=== PATIENT | female | born 1980 | race Caucasian/White ===

== ENCOUNTER 2022-02-24 06:09 | Emergency (ER) | payer OTHER ==
[~2022-02-24] VITALS: Ht 170.2 cm; Wt 97.5 kg
[2022-02-24] MEDS ORDERED: SODIUM BICARBONATE SYR 50 MEQ/50 ML DISP.SYRIN IV ONE (06:12)
[2022-02-24] MEDS ORDERED: EPINEPHRINE (1:10,000) SYRINGE 1 MG/10 ML DISP.SYRIN IVP ONE (06:12)
[2022-02-24] MEDS ORDERED: CALCIUM CHLORIDE 1,000 MG/10 ML DISP.SYRIN IV ONE (06:12)
--- NOTE | 2022-02-24 06:12 | NUR ---
Kai hernadez in [facility] - 02/24/22 at 0659 by VICTORINA PT TRUPTI VOSS CASE: REJECT NUMBER [id number] SPOKE TO SEVEN
--- NOTE | 2022-02-24 06:24 | NUR ---
PT EXTUBATED WITH LARGE MUCAL PLUG. PT INTUBATED BY DR. MARY GOTTI WITH RT.
--- NOTE | 2022-02-24 06:34 | NUR ---
TIME OF PRONOUNCED AT [address] MARY GOTTI.
--- NOTE | 2022-02-24 06:53 | NUR ---
PT WAS BROUGHT BY LILIA @ 0612, PT IS IN FULL ARREST, NO PULSE APPRECIATED. 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 LILIA REPORTED THAT PT STARTED TO CODE UPON PULLING IN THE HOSPITAL DRIVEWAY. CODE BLUE WAS INITIATED, MD WAS AT THE BEDSIDE. UPON PRESENTATION, PT IS UNRESPONSIVE.
--- NOTE | 2022-02-24 06:59 | NUR ---
PT NOT CORONERS CASE: REJECT NUMBER [id number] SPOKE TO SEVEN
--- NOTE | 2022-02-24 07:03 | NUR ---
DR STERLING PMD NOTIFIED THAT PT
--- NOTE | 2022-02-24 07:05 | NUR ---
CALLED [facility], SPOKE WITH PAUL RAHMAN TO INFORM THAT THE PATIENT HAVE . SHE WILL BE NOTIFYING THE FAMILY OF PT'S .
--- NOTE | 2022-02-24 07:15 | NUR ---
CALLED [facility] AND SPOKE TO BENOIT JHAVERI [facility] WILL CALL BACK REGARDING IF PT IS A CANDIDATE
--- NOTE | 2022-02-24 08:05 | NUR ---
called pt's family Jeovany, spouse several times nut no answer. message left to call back regarding his .
--- NOTE | 2022-02-24 08:21 | NUR ---
SPOKE WITH BENOIT FROM [facility] PT IS A CANDIDATE FOR TISSUE DONATION REFERRAL # [id number] STATED THEY WILL CALL BACK IN AN HOUR
== END 2022-02-24 09:48 ==
LOC: ER 06:11
DX: I46.9 Cardiac arrest, cause unspecified (principal)
CPT/HCPCS: 99285; 92950; 31500; J3490 ×2; J0171